=== PATIENT | male | born 1950 | race Caucasian/White ===

== ENCOUNTER 2021-03-31 00:57 | Day surgery (SDC) | payer MEDICARE, OTHER, SELFPAY ==
[2021-03-14 14:01] VITALS: BMI 32.0
[2021-03-31 07:31] VITALS: BP 166/68; PULSE 70; RESP 20; TEMP 35.7; O2SAT 98
[2021-03-31] MEDS: LACTATED RINGERS 1,000 ML 150 ML IV CONT (07:36)
--- NOTE | 2021-03-31 08:13 | WPDANESEPPF ---
Anes - Initial Pre Proc Eval Procedure: Operation Date: 03/31/21 08:30 Proposed Procedures p Screening Colonoscopy - Blayne Laughlin MD Date/Time: 04/30/21 10:13 Surgeon: Blayne Laughlin MD Pre Op Diagnosis: neoplasm screening Patient Data Age: 70 Gender: M Height: 1.73 m Weight: 96.3 kg Last Vital Signs Temp 96.2 F L 03/31/21 07:31 Pulse 64 03/31/21 10:01 Resp 21 H 03/31/21 10:01 BP 148/62 H 03/31/21 10:01 Pulse Ox 92 03/31/21 10:01 Allergies Allergy/AdvReac Type Severity Reaction Status Date / Time No Known Allergies Allergy Unverified 03/31/21 07:30 Home Medications Medication Instructions Recorded Confirmed Type atorvastatin 20 mg tablet 20 mg PO DAILY #90 tablet 12/17/20 03/14/21 Rx diltiazem HCl 180 mg 180 mg PO DAILY #90 cap 12/17/20 03/14/21 Rx capsule,extended release 24 hr lancets #200 ea 12/18/20 Rx blood sugar diagnostic #100 ea 12/20/20 Rx allopurinol 100 mg PO DAILY 03/14/21 03/14/21 History isosorbide mononitrate 30 mg PO DAILY 03/14/21 03/14/21 History metoprolol tartrate 75 mg PO Q12H 03/14/21 03/14/21 History nitroglycerin 0.4 mg SUBLINGUAL Q5-15M PRN 03/14/21 03/14/21 History doxazosin 4 mg tablet 8 mg PO DAILY tablet 04/15/21 History Patient hx anesthesia problems: none Family hx anesthesia problems: none PMFSH Past Medical History Medical History (Updated 03/31/21 @ 09:18 by Blayne Laughlin MD) Arthritis Carotid stenosis, bilateral Chemotherapy-induced neuropathy Hypertension Lymphoma Sleep apnea Type 2 diabetes mellitus Family History Family History (Updated 12/17/20 @ 11:20 by Amna Mann CMA) Mother Diabetes mellitus Father Emphysema of lung Grandparent Acute myocardial infarction Diabetes mellitus Sibling Cancer Social History Social History (Updated 12/17/20 @ 11:19 by Amna Mann CMA) Smoking packs per day: 2 Smoking cigarettes per day: 40.0 Smoking status: Former smoker Tobacco type: cigarettes Alcohol intake: former Drinks per week: 10 Substance use: never Substance use type: does not use Spiritual care concerns: No Anes - Eval Final PreProcedure Day of Procedure 04/30/21 10:13 Patient weight: obese Heart: regular rate and rhythm Lungs: clear to auscultation Airway: Mallampati scale class II Neurological: alert and oriented Last oral intake: >/= 8 hours ASA classification: III Emergent: no Anesthetic plan: proceed Anesthesia type and monitoring: general GIVS and standard monitoring Informed Consent: The patient's anesthetic plan and its attendant risks and benefits were discussed with the patient/family/POA. Questions were solicited and answers provided to the satisfaction of the patient/family/POA.
--- NOTE | 2021-03-31 09:16 | WPDGICN ---
Assessment and Plan Assessment and plan (1) Screening for colon cancer: Code(s): Z12.11 - Encounter for screening for malignant neoplasm of colon Status: Acute Assessment and Plan: Patient presents for screening colonoscopy. Current weight appetite bowel movements are normal. Further recommendations will be given after endoscopy. Last exam was 10 years ago. GI Consult Note Consult date/time: 03/31/21 09:16 HPI: Chino Sutherland is a 70 year old male Presents for screening colonoscopy. Patient's last exam was 10 years ago. Patient's current weight appetite bowel movements are normal. Patient denies abdominal pain. He has had no blood in his stools. Recent history is significant for chronic kidney disease. He states that he was treated for lymphoma and felt to be cured of disease within the last 10 years. Review of Systems Review of Systems: All systems reviewed & are unremarkable except as noted in HPI and below PMFSH Past Medical History Medical History (Updated 03/31/21 @ 09:18 by Blayne Laughlin MD) Arthritis Carotid stenosis, bilateral Chemotherapy-induced neuropathy Hypertension Lymphoma Sleep apnea Type 2 diabetes mellitus Family History Family History (Updated 12/17/20 @ 11:20 by Amna Mann [facility]) Mother Diabetes mellitus Father Emphysema of lung Grandparent Acute myocardial infarction Diabetes mellitus Sibling Cancer Social History Social History (Updated 12/17/20 @ 11:19 by Amna Mann [facility]) Smoking packs per day: 2 Smoking cigarettes per day: 40.0 Smoking status: Former smoker Tobacco type: cigarettes Alcohol intake: former Drinks per week: 10 Substance use: never Substance use type: does not use Living arrangements: with family Spiritual care concerns: No Meds Home Medications and Allergies Home Medications Medication Instructions Recorded Confirmed Type atorvastatin 20 mg tablet 20 mg PO DAILY #90 tablet 12/17/20 03/14/21 Rx diltiazem HCl 180 mg 180 mg PO DAILY #90 cap 12/17/20 03/14/21 Rx capsule,extended release 24 hr lancets #200 ea 12/18/20 Rx blood sugar diagnostic #100 ea 12/20/20 Rx allopurinol 100 mg PO DAILY 03/14/21 03/14/21 History doxazosin 4 mg PO DAILY 03/14/21 03/14/21 History isosorbide mononitrate 30 mg PO DAILY 03/14/21 03/14/21 History metoprolol tartrate 75 mg PO Q12H 03/14/21 03/14/21 History nitroglycerin 0.4 mg SUBLINGUAL Q5-15M PRN 03/14/21 03/14/21 History Allergies Allergy/AdvReac Type Severity Reaction Status Date / Time No Known Allergies Allergy Unverified 03/31/21 07:30 Vital Signs Vital Signs - 24 hr 03/31/21 07:31 Temperature 96.2 F L Pulse Rate 70 Respiratory Rate 20 Blood Pressure 166/68 H Pulse Oximetry 98 Exam Narrative: Exam Narrative: Physical exam reveals patient be alert. Vital signs stable. HEENT exam is unremarkable. Patient is anicteric. Lungs are clear to auscultation and percussion. Heart is without murmur or extra sounds. Abdominal exam bowel sounds are present soft nontender with no organomegaly. Digital external rectal exam is normal.
[2021-03-31 09:20] VITALS: BP 148/62; PULSE 64; RESP 21; O2SAT 92
[2021-03-31 09:30] VITALS: BP 145/56; PULSE 64; RESP 26; O2SAT 92
[2021-03-31 09:33] LABS: Glucose Point of Care 97 mg/dl (65-105)
[2021-03-31 09:40] VITALS: BP 157/70; PULSE 63; RESP 18; O2SAT 96
== END 2021-03-31 10:00 | disposition home or self-care (01) ==
PROVIDERS: PCP Internal Medicine; Visit Provider Internal Medicine Gastroenterology
PROC: 0DJD8ZZ Inspection of Lower Intestinal Tract, Via Natural or Artificial Opening Endoscopic (ICD-10-PCS; CPT 45378; principal; 2021-03-31 08:30)
DX: Z12.11 Encounter for screening for malignant neoplasm of colon (principal); K64.8 Other hemorrhoids; M19.90 Unspecified osteoarthritis, unspecified site; G62.0 Drug-induced polyneuropathy; C85.90 Non-Hodgkin lymphoma, unspecified, unspecified site; G47.30 Sleep apnea, unspecified; E11.9 Type 2 diabetes mellitus without complications; Z87.891 Personal history of nicotine dependence; I10 Essential (primary) hypertension
CPT/HCPCS: G0121; 82948; J2704; J7120

== ENCOUNTER 2021-04-29 15:32 | Outpatient (CLI) | payer MEDICARE, OTHER, SELFPAY ==
--- NOTE | ~2021-04-29 | XR_ITS ---
XR chest 2V DATE: 04/29/2021 16:00 INDICATION: Cough. Former smoker. Coronary artery disease. History of 2 coronary stents. Diabetes irina litus. TECHNIQUE: PA and lateral views COMPARISON: 10/20/2016 portable AP chest 10/20/2016 CT pulmonary scan FINDINGS: There is mild elevation right leaf of diaphragm and mild atelectasis or scarring at the rig ht lung base. The lungs otherwise appear clear. Heart size is within normal range. No hilar or mediastinal enlargement. No pleural effusion or pulmonary vascular congestion or pneumothorax. IMPRESSION: Mild atelectasis or scarring at the right lung base Reviewed, dictated and finalized at location A.
== END 2021-04-29 15:33 | disposition home or self-care (01) ==
LOC: ANHIMG 15:36
PROVIDERS: PCP Internal Medicine; Visit Provider Internal Medicine Cardiovascular Disease
DX: R05 Cough (principal); I25.118 Atherosclerotic heart disease of native coronary artery with other forms of angina pectoris; R91.8 Other nonspecific abnormal finding of lung field
CPT/HCPCS: 71046

== ENCOUNTER 2021-09-08 15:00 | Outpatient (RCR) | payer MEDICARE, OTHER, SELFPAY ==
[2021-06-17 15:49] VITALS: PULSE 78
== END 2021-09-08 19:30 | disposition home or self-care (01) ==
LOC: ANHCPREHAB 15:00
PROVIDERS: PCP Internal Medicine; Visit Provider Internal Medicine Cardiovascular Disease
DX: Z95.5 Presence of coronary angioplasty implant and graft (principal)
CPT/HCPCS: 93798

== ENCOUNTER 2022-06-09 11:52 | Outpatient (CLI) | payer MEDICARE, OTHER, SELFPAY ==
--- NOTE | ~2022-06-09 | XR_ITS ---
XR chest 2V DATE: 06/09/2022 12:17 INDICATION: Cough for one month TECHNIQUE: 2 views COMPARISON: 04/29/2021 PA and lateral chest FINDINGS: Normal heart size. Chronic mild discoid atelectasis or scarring at the lung bases. No pulmonary consolidation, pleural e ffusion, pulmonary vascular congestion or pneumothorax is detected. No hilar or mediastinal enlargeme nt. Osteopenia. IMPRESSION: Chronic mild basilar discoid atelectasis or scarring; otherwise no active cardiac pulmona ry disease or significant change since 04/29/2021 Reviewed, dictated and finalized at location B. 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
== END 2022-06-09 11:53 | disposition home or self-care (01) ==
LOC: ANHIMG 11:57
PROVIDERS: PCP Internal Medicine; Visit Provider Nurse Practitioner
DX: R05.1 Acute cough (principal); R91.8 Other nonspecific abnormal finding of lung field
CPT/HCPCS: 71046

== ENCOUNTER 2025-09-27 12:30 | Outpatient (RCR) | payer MEDICARE, SELFPAY | END 2025-09-28 15:43 | disposition home or self-care (01) | LOC: ANHCPREHAB 12:30 | PROVIDERS: PCP Internal Medicine; Visit Provider Internal Medicine Cardiovascular Disease | DX: Z95.2 Presence of prosthetic heart valve (principal) | CPT/HCPCS: 93798 ==